=== PATIENT | female | born 1970 | race Caucasian/White ===

== ENCOUNTER 2021-10-09 15:00 | Outpatient (CLI) | payer BC | END 2021-10-09 15:01 | disposition home or self-care (01) | LOC: CSHMAMMO 15:00 | PROVIDERS: ATTEND Family Medicine | DX: Z12.31 Encounter for screening mammogram for malignant neoplasm of breast (principal) | CPT/HCPCS: 77063; 77067 ==

== ENCOUNTER 2024-06-28 11:43 | Outpatient (CLI) | payer BC | END 2024-06-28 11:44 | disposition home or self-care (01) | LOC: CSHMAMMO 11:43 | PROVIDERS: ATTEND Family Medicine | DX: Z12.31 Encounter for screening mammogram for malignant neoplasm of breast (principal) | CPT/HCPCS: 77063; 77067 ==

== ENCOUNTER 2024-07-10 11:06 | Outpatient (CLI) | payer BC | END 2024-07-10 11:07 | disposition home or self-care (01) | LOC: CSHULT 11:06 | PROVIDERS: ATTEND Family Medicine | DX: R79.89 Other specified abnormal findings of blood chemistry (principal); K76.0 Fatty (change of) liver, not elsewhere classified | CPT/HCPCS: 76700 ==